=== PATIENT | male | born 1960 | race Caucasian/White ===

== ENCOUNTER → 2016-12-25 | Outpatient (CLI) | payer OTHER | LOC: EMI 12-20 07:30 | DX: M54.9 Dorsalgia, unspecified (principal); M54.2 Cervicalgia; R51 Headache; M51.37 Other intervertebral disc degeneration, lumbosacral region; M47.896 Other spondylosis, lumbar region; M51.26 Other intervertebral disc displacement, lumbar region; M50.30 Other cervical disc degeneration, unspecified cervical region | CPT/HCPCS: 72141; 72148 ==